=== PATIENT | female | born 1995 | race Caucasian/White ===

== ENCOUNTER 2019-09-06 14:27 | Outpatient (CLI) | payer OTHER ==
[2019-09-06 14:53] LABS: Glucose,Whole Blood 89 mg/dL (75-99)
[2019-09-06 15:43] VITALS: BP 133/82; PULSE 118; RESP 16; TEMP 97.3
[2019-09-06 16:09] LABS: Basophils % (A) 0 %; Eosinophils # (A) 0.1 k/uL (0-0.7); Eosinophils % (A) 2 %; HCT 27.9 % (34.0-46.0); HGB 9.5 gm/dL (11.4-16.0); Lymphocytes # (A) 1.3 k/uL (1.0-4.8); Lymphocytes % (A) 17 %; MCH 29.5 pg (25.0-35.0); MCHC 33.9 g/dL (31.0-37.0); Mean Platelet Volume 6.6; Monocytes # (A) 0.4 k/uL (0-1.0); Monocytes % (A) 5 %; Neutrophils # (A) 5.5 k/uL (1.3-7.7); Neutrophils % (A) 74 %; Platelet Count 328 k/uL (150-450); Poikilocytosis Slight; RBC 3.21 m/uL (3.80-5.40); RDW 13.2 % (11.5-15.5); WBC 7.5 k/uL (3.8-10.6)
[2019-09-06 16:18] LABS: ALT 16 U/L (9-52); AST 20 U/L (14-36); African American GFR (CKD) >90 (>60 ml/min/1.73 sqM); Blood Urea Nitrogen 6 mg/dL (7-17); LDH 332 U/L (313-618); Uric Acid 2.8 mg/dL (3.7-7.4)
[2019-09-06 16:20] LABS: Amorphous Sediment,Urine Rare /hpf; Appearance,Urine Cloudy (Clear); Bacteria,Urine Rare /hpf; Bilirubin,Urine Negative (Negative); Blood,Urine Negative (Negative); Color,Urine Yellow; Glucose,Urine (UA) Negative (Negative); Ketones,Urine Negative (Negative); Leukocyte Esterase,Urine Trace (Negative); Mucus,Urine Rare /hpf; Nitrite,Urine Negative (Negative); PH, Urine 6.5 (5.0-8.0); Protein,Urine Negative (Negative); RBC,Urine 1 /hpf (0-5); Specific Gravity,Urine 1.009 (1.001-1.035); Squamous Epithelial Cell,Urine 15 /hpf (0-4); Urobilinogen,Urine <2.0 mg/dL (<2.0); WBC,Urine 4 /hpf (0-5)
--- NOTE | 2019-09-06 18:45 | P.MSEPDOC ---
Presenting Problems - Arrival Data Date of Arrival on Unit: 09/06/19 Time of Arrival on Unit: 14:27 Mode of Transport: Ambulatory - Complaint OB-Reason for Admission/Chief Complaint: Headache, Pain Comment: pain up spine and headache Medical History - Information : 3 Para: 2 Term: 2 : 0 Abortions: Spontaneous or Elective: 0 Number of Living Children: 2 - Gestational Age Gestational Age by MARCUS (wks/days): 36 Weeks and 4 Days - History Complications: GDM Review of Systems - Review of Systems Constitutional: No problems Breast: No problems ENT: No problems Cardiovascular: No problems Respiratory: No problems Gastrointestinal: No problems Genitourinary: No problems Musculoskeletal: No problems Neurological: No problems Skin: No problems Vital Signs - Temperature Temperature: 97.3 F Temperature Source: Temporal Artery Scan - Pulse Right Sitting Pulse Rate: 118 Pulse Assessment Method: Automatic Cuff - Respirations Respiratory Rate: 16 Oxygen Delivery Method: Room Air O2 Sat by Pulse Oximetry: 99 - Blood Pressure Right Arm Blood Pressure: 133/82 Blood Pressure Mean: 99 Blood Pressure Source: Automatic Cuff Medical Screen Scoring (Pre) - Cervical Exam Dilation: Exam Deferred Effacement: Exam Deferred Membranes: Intact - Uterine Contractions Frequency: N/A Duration: N/A Intensity: N/A - Maternal Vital Signs Maternal Temperature: N/A Maternal Blood Pressure: N/A Signs of Preeclampsia: Headache = 1 Maternal Respirations: N/A - Maternal Trauma Maternal Trauma: N/A - Assessment - Baby A Baseline FHR: 145 Heart Rate - NICHD Category: Category I (Normal) = 0 NST: Reactive Position: N/A Station: N/A - Total Score - Baby A Total Score - Baby A: 1 - Total Score - Baby B Total Score - Baby B: 1 - Total Score - Baby C Total Score - Baby C: 1 - Level of Risk - Baby A Level of Risk - Baby A: Low (0-5) - Level of Risk - Baby B Level of Risk - Baby B: Low (0-5) - Level of Risk - Baby C Level of Risk - Baby C: Low (0-5) Physician Notification (Pre) - Physician Notified Physician Notified Date: 09/06/19 Physician Notified Time: 15:18 Physician/Practitioner Notifed:: Ab Panchal Order Received: Yes (PIH eval) Physician Notification (Post) - Physician Notified Physician Notified Date: 09/06/19 Physician Notified Time: 16:35 Physician/Practitioner Notified:: Dr. Berger Spoke With: Dr. Berger New Order Received: Yes - Notification Comment Comment: Notified of [facility] labwork and that pt continues to have reactive FHT. Orders received to discharge pt home. Disposition - Disposition OB Disposition: Discharge to home Transferred to:: home Discharge Date: 09/06/19 Discharge Time: 16:45 I agree with the RN Medical Screening Exam: Yes Risk & Benefit of care provided described in d/c instruction: Yes Diagnosis: OTHER SPECIFIED COMPLICATIONS OF LABOR AND DELIVERY
== END 2019-09-06 16:45 | disposition home or self-care (01) ==
LOC: FBPOP 14:27
PROVIDERS: ATTEND Obstetrics & Gynecology
DX: O75.89 Other specified complications of labor and delivery (principal); Z3A.36 36 weeks gestation of pregnancy
CPT/HCPCS: 59025; 84156; 82565; 83615; 84450; 84460; 84520; 84550; 85025; 81001; G0463; 82570; 99215

== ENCOUNTER 2019-09-23 05:44 | Inpatient (IN) | payer OTHER ==
--- NOTE | 2019-09-22 17:19 | P.HPOB ---
History of Present Illness H&P Date: 09/22/19 Chief Complaint: Requested induction of labor, gestational diabetes This patient is a pleasant 24-year-old 4 para 2 female estimated date of confinement 09/30/2019 estimated gestational age 39 weeks who presents to labor and delivery for induction of labor secondary to gestational diabetes in maternal discomfort. Patient's had diet-controlled diabetes with good control. She is a favorable cervix requesting induction at this time. Diabetes has been managed per maternal- medicine she's been followed with growth ultrasounds and nonstress tests. otherwise has been uncomplicated. Review of Systems Genitourinary: Reports Menstruation: Reports amenorrhea Past Medical History Additional Past Medical History / Comment(s): Gestational diabetes. History of Any Multi-Drug Resistant Organisms: None Reported Additional Past Surgical History / Comment(s): Dilation and curettage Past Anesthesia/Blood Transfusion Reactions: No Reported Reaction Past Psychological History: Anxiety, Depression Smoking Status: Never smoker Past Alcohol Use History: None Reported Past Drug Use History: None Reported Medications and Allergies Home Medications Medication Instructions Recorded Confirmed Type Pnv No.95/Ferrous Fum/Folic AC 1 tab PO DAILY 09/06/19 09/06/19 History [ Multivitamin Tablet] Allergies Allergy/AdvReac Type Severity Reaction Status Date / Time codeine Allergy Rash/Hives Verified 09/06/19 15:12 Exam - OBG Physical Exam Abdomen: bowel sounds normal, no diffuse tenderness, no bruit present, no guarding noted, no hepatomegaly, no splenomegaly, no mass Vulva: both: normal Vagina: normal moisture, no discharge Cervix: no lesion (Cervix is 2 cm and thick but soft.), no discharge Uterus: enlarged (Fundal height is 38 cm) Results blood work shows she is A positive, rubella immune, RPR is nonreactive, hepatitis B is negative, HIV is negative, Glucola was 135 patient declined a three-hour GTT and was referred to maternal- medicine. Group B strep was negative. cardiac echo showed a EIF and they recommended a nonemergent echo to evaluate the aortic valve secondary to family medical history. All sounds have shown normal growth. Assessment and Plan Assessment: This is a pleasant 24-year-old 4 para 2 female 39 weeks gestation who is admitted to labor and delivery for requested induction of labor and for gestational diabetes. Plan is induction of labor per protocol and anticipate vaginal delivery. (1) 39 weeks gestation of Status: Acute Code(s): Z3A.39 - 39 WEEKS GESTATION OF SNOMED Code(s): 27597734 (2) Gestational diabetes Status: Acute Code(s): O24.419 - GESTATIONAL DIABETES MELLITUS IN , UNSP CONTROL SNOMED Code(s): 39719384 (3) Elective induction of labor planned Status: Acute Code(s): [id number] - SNOMED Code(s): 534150050
[2019-09-23] MEDS ORDERED: TERBUTALINE 1 MG/ML VIAL SQ PRN (05:57)
[2019-09-23] MEDS ORDERED: LIDOCAINE 0.5% (PF) 5 MG/ML (50 ML SDV) SQ PRN (05:57)
[2019-09-23] MEDS ORDERED: METHYLERGONOVINE 0.2 MG/ML 1 ML AMP IM PRN (05:57)
[2019-09-23] MEDS ORDERED: OXYTOCIN 10 UNIT/ML 1 ML VIAL IM PRN (05:57)
[2019-09-23] MEDS ORDERED: OXYTOCIN 30 UNITS/500 ML NS 30 UNIT in SALINE 1 500ML.BAG IV SCH (05:57)
[2019-09-23] MEDS ORDERED: CARBOPROST TROMETHAMINE 250 MCG/ML 1 ML AMP IM PRN (05:57)
[2019-09-23 06:08] LABS: Glucose,Whole Blood 101 mg/dL (75-99)
[2019-09-23 06:19] LABS: Basophils # (A) 0.2 k/uL (0-0.2); Basophils % (A) 2 %; Eosinophils # (A) 0.2 k/uL (0-0.7); Eosinophils % (A) 2 %; HCT 29.9 % (34.0-46.0); HGB 9.8 gm/dL (11.4-16.0); Lymphocytes # (A) 1.2 k/uL (1.0-4.8); Lymphocytes % (A) 18 %; MCH 28.4 pg (25.0-35.0); MCHC 32.9 g/dL (31.0-37.0); MCV 86.4 fL (80.0-100.0); Mean Platelet Volume 6.8; Monocytes # (A) 0.3 k/uL (0-1.0); Monocytes % (A) 5 %; Neutrophils # (A) 4.7 k/uL (1.3-7.7); Neutrophils % (A) 71 %; Platelet Count 306 k/uL (150-450); Poikilocytosis Slight; RBC 3.46 m/uL (3.80-5.40); RDW 13.5 % (11.5-15.5); WBC 6.6 k/uL (3.8-10.6)
[2019-09-23 06:26] VITALS: BMI 30.1
[2019-09-23] MEDS: LACTATED RINGERS 1,000 ML IV SCH ×2 (06:26→11:02)
[2019-09-23] MEDS ORDERED: ROPIVACAINE 5MG/ML 20ML VIAL ONE (12:34)
[2019-09-23] MEDS ORDERED: SODIUM CHLORIDE 0.9% 100 ML BAG ONE (12:34)
[2019-09-23] MEDS ORDERED: fentaNYL (PF) 50 MCG/ML 5 ML AMP ONE (12:34)
--- NOTE | 2019-09-23 18:33 | P.PROBDLV ---
Vaginal Delivery Note - . Vaginal Delivery Note: Normal vaginal delivery viable female Apgars 9 and 9 delivery time is 1809 hrs. Please see dictated H&P for intimate details of this patient's admission. In brief summary this is a pleasant 24-year-old 4 para 2 female estimated gestational age 39-0/7 weeks who is admitted to labor and delivery for induction of labor secondary to maternal discomfort and gestational diabetes. Patient is admitted and is to centimeters dilated and uneffaced. She has artificial rupture membranes for clear fluid. Labor is induced with Pitocin per protocol. Labor progresses and she gets an epidural for pain control approximately 4 cm. Patient thereafter goes more rapidly and pushes the head to the perineum. Posterior perineum is supported and we have controlled delivery of infant's head over the intact perineum. Mouth and nares are bulb suctioned. There is a very loose nuchal cord. With gentle downward traction we then have deliver the anterior posterior shoulder and rest this infant's body. This is a vigorous viable female Apgars 9 and 9 delivery time is 1809 hrs. After delivery of the infant the umbilical cord is allowed to quit pulsating is then doubly clamped and cut. It appears to be trivascular. Placenta spontaneously deliver ed intact. Inspection of the perineum shows separation of the labia on the right upper side. There is also a superficial laceration of the right perineum and posteriorly most of these are very superficial however I did do my best to reapproximate the right upper labia and put it back as previous. This was accomplished with lidocaine and a 4-0 Vicryl. Excellent reapproximation is noted. Estimated blood loss is 200 mL. There are no complications. Infant and mother are stable.
[2019-09-23] MEDS ORDERED: SIMETHICONE 80 MG CHEWABLE PO PRN (19:05)
[2019-09-23] MEDS ORDERED: ZOLPIDEM 5 MG TAB PO PRN (19:05)
[2019-09-23] MEDS ORDERED: OXYTOCIN 20 UNITS/1000 ML NS 1,000 ML IV SCH (19:05)
[2019-09-23] MEDS ORDERED: ACETAMINOPHEN TAB 325 MG TAB PO PRN (19:05)
[2019-09-23] MEDS ORDERED: BENZOCAINE/MENTHOL SPRAY 1 GM/SPRAY AEROSOL TOPICAL PRN (19:05)
[2019-09-23] MEDS ORDERED: LANOLIN CREAM 5 GM TUBE TOPICAL PRN (19:05)
[2019-09-23] MEDS ORDERED: diphenhydrAMINE 50 MG/ML 1 ML VIAL IVP PRN (19:05)
[2019-09-23] MEDS ORDERED: WITCH HAZEL 1 EACH MED..PAD TOPICAL PRN (19:05)
[2019-09-23] MEDS ORDERED: BISACODYL 10 MG SUPP RECTAL PRN (19:05)
[2019-09-23] MEDS ORDERED: HYDROCORTISONE 2.5% RECTAL CREAM 30 GM TUBE RECTAL PRN (19:05)
[2019-09-23] MEDS ORDERED: diphenhydrAMINE 25 MG CAP PO PRN (19:05)
[2019-09-23] MEDS: IBUPROFEN 600 MG TAB PO PRN (19:29)
[2019-09-23] MEDS: SENNOSIDES-DOCUSATE SODIUM 1 EACH TAB PO SCH ×2 (19:30→20:50)
[2019-09-24] MEDS: IBUPROFEN 600 MG TAB PO PRN ×2 (05:17→11:00)
--- NOTE | 2019-09-24 07:38 | P.PNOBGVD ---
Subjective - Subjective Patient reports: Reports appetite normal, Reports voiding normally, Reports pain well controlled, Reports ambulating normally : doing well Objective - Latest Vital Signs Latest vital signs: Vital Signs Temp Pulse Resp BP Pulse Ox 09/24/19 04:00 98 F 80 15 120/70 98 09/24/19 00:00 98 F 82 15 131/72 09/23/19 20:30 92 16 135/95 09/23/19 20:03 88 16 128/71 09/23/19 19:32 100 17 137/75 09/23/19 19:17 80 17 132/71 09/23/19 19:01 80 16 136/76 09/23/19 18:46 96 16 136/72 09/23/19 18:31 98.4 F 98 17 137/82 Intake and Output 09/23/19 09/24/19 09/24/19 22:59 06:59 14:59 Output Total 200 Balance -200 Output: Urine 200 Straight 200 Other: # Voids 1 - Exam Lungs: bilateral: normal Chest: Normal S1, Normal S2 Extremities: Present: normal Abdomen: Present: normal appearance, soft Uterus: Present: normal, firm Assessment and Plan Assessment: day #1. Patient is resting without new complaints and wishes to go home later today. Vital signs are stable she is afebrile. Uterus is firm nontender and she is having normal lochia. My impression is a normal course. Plan is to continue routine care discharge home later today (1) 39 weeks gestation of Current Visit: No Status: Acute Code(s): Z3A.39 - 39 WEEKS GESTATION OF SNOMED Code(s): 56714273 (2) Gestational diabetes Current Visit: No Status: Acute Code(s): O24.419 - GESTATIONAL DIABETES MELLITUS IN , UNSP CONTROL SNOMED Code(s): 91475682 (3) Elective induction of labor planned Current Visit: No Status: Acute Code(s): CBJ4655 - SNOMED Code(s): 061581242
--- NOTE | 2019-09-24 07:41 | P.DS ---
Providers Date of admission: 09/23/19 05:44 Expected date of discharge: 09/24/19 Attending physician: Fish Berger Primary care physician: Stated None - Discharge Diagnosis(es) (1) 39 weeks gestation of Current Visit: No Status: Acute (2) Gestational diabetes Current Visit: No Status: Acute (3) Elective induction of labor planned Current Visit: No Status: Acute Hospital Course: Please see dictated H&P intimate details of this patient's admission. Brief summary this is a pleasant 24-year-old 4 para 2 female 39-0/7 weeks gestation who is admitted to labor and delivery for elective induction of labor and for gestational diabetes. Patient is admitted she is uncomplicated induction of labor was on have a vaginal delivery viable female . Please see dictated delivery note. day #1 patient without complaints she wishes to go home. Vital signs are stable she is afebrile. Uterus is firm nontender she's having normal lochia felt be stable for discharge home follow up with me in 6 weeks Procedures: Induction of labor and normal vaginal delivery Patient Condition at Discharge: Good Plan - Discharge Summary New Discharge Prescriptions: New RX: Ibuprofen [Motrin] 600 mg PO Q6HR PRN #40 tab PRN Reason: Mild Pain Or Fever >= 100.5 Discharge Medication List RX: Ibuprofen [Motrin] 600 mg PO Q6HR PRN #40 tab 09/24/19 [Rx] Follow up Appointment(s)/Referral(s): Fish Berger MD [STAFF PHYSICIAN] - 6 Weeks Patient Instructions/Handouts: Vaginal Delivery (DC) Activity/Diet/Wound Care/Special Instructions: No intercourse or anything per vagina for 6 weeks. Please call if any fever, chills, excessive vaginal bleeding, and/or abdominal pain. Discharge Disposition: HOME SELF-CARE
[2019-09-24] MEDS: SENNOSIDES-DOCUSATE SODIUM 1 EACH TAB PO SCH ×2 (07:55→13:30)
[2019-09-24 16:10] VITALS: BP 137/82; PULSE 74; RESP 17; TEMP 98.3
== END 2019-09-24 19:05 | disposition home or self-care (01) | DRG 807 ==
LOC: 4FBP 05:44
PROVIDERS: ADMIT Obstetrics & Gynecology; ATTEND Obstetrics & Gynecology
PROC: 10E0XZZ Delivery of Products of Conception, External Approach (ICD-10-PCS; principal; 2019-09-23)
DX: O99.344 Other mental disorders complicating childbirth (principal); Z37.0 Single live birth; O24.429 Gestational diabetes mellitus in childbirth, unspecified control; F41.9 Anxiety disorder, unspecified; F32.9 Major depressive disorder, single episode, unspecified; Z3A.39 39 weeks gestation of pregnancy; Z83.3 Family history of diabetes mellitus
CPT/HCPCS: 85025; 86850; 86900; 86901; 88307

== ENCOUNTER 2019-12-30 06:26 | Day surgery (SDC) | payer BC, OTHER ==
[2019-12-28 12:28] VITALS: BMI 25.6
--- NOTE | 2019-12-29 13:06 | P.HPOB ---
History of Present Illness H&P Date: 12/29/19 Chief Complaint: Requesting permanent sterilization This patient is a pleasant 24 yr who presented to me for her visit and is requesting permanent sterilization. I discussed various options for control, including hormonal, IUD, and male sterilization but this is the method she desires. 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 Past Medical History Past Medical History: No Reported History Additional Past Medical History / Comment(s): hx Gestational diabetes. History of Any Multi-Drug Resistant Organisms: None Reported Additional Past Surgical History / Comment(s): Dilation and curettage Past Anesthesia/Blood Transfusion Reactions: No Reported Reaction Past Psychological History: No Psychological Hx Reported Smoking Status: Never smoker Past Alcohol Use History: None Reported Past Drug Use History: None Reported - Past Family History Father History Unknown: Yes Family Medical History: No Reported History Medications and Allergies Home Medications Medication Instructions Recorded Confirmed Type No Known Home Medications 12/28/19 12/28/19 History Allergies Allergy/AdvReac Type Severity Reaction Status Date / Time codeine Allergy Rash/Hives Verified 12/28/19 12:24 Exam - OBG Physical Exam Abdomen: bowel sounds normal, no diffuse tenderness, no bruit present, no guarding noted, no hepatomegaly, no splenomegaly, no mass Vulva: both: normal Vagina: normal moisture, no discharge Cervix: no lesion, no discharge Uterus: normal size, normal contour Adnexa: both: normal Assessment and Plan Assessment: I have had a long discussion with Teena about control options and she is requesting laparoscopic bilateral fallopian tube cauterization. She understands that this procedure is considered permanent, however there is a failure rate of ~03/1000 procedures done. She also understands that if she does become she has ~50% chance of a tubal/ectopic requiring further treatment/surgery. I discussed the risks of this surgery including: infection, bleeding, possible injury to bowel/bladder/vessels and or other organs. She and I discussed that the procedure is elective and alternative exist. All of her questions were answered and a written consent obtained. (1) Family planning Status: Acute Code(s): Z30.09 - ENCOUNTER FOR OT GENERAL CNSL AND ADVICE ON CONTRACEPTION SNOMED Code(s): 767452551
[~2019-12-30 06:26] MED LIST: DEXAMETHASONE SOD PHOSPHATE 10 MG/ML 1 ML VIAL IV ONE; HYDROmorphone 0.5 MG/0.5 ML SYRINGE IVP PRN; KETOROLAC 30 MG/ML 1 ML VIAL IVP SCH; LACTATED RINGERS 1,000 ML IV SCH; LIDOCAINE 1% 20 ML VIAL (10MG/ML) FOR IV START INTRADERMA PRN; ONDANSETRON 4 MG/2 ML VIAL IVP PRN; Pre Op ABX Message 1 EACH MISC MISCELLANE ONE; SCOPOLAMINE 1.5MG/72HR PATCH TRANSDERM ONE
[2019-12-30] MEDS ORDERED: fentaNYL (PF) 50 MCG/ML 2 ML AMP ONE (07:19)
[2019-12-30] MEDS ORDERED: NEOSTIGMINE 1 MG/ML 10 ML VIAL ONE (07:19)
[2019-12-30] MEDS ORDERED: KETOROLAC 30 MG/ML 1 ML VIAL ONE (07:19)
[2019-12-30] MEDS ORDERED: SUCCINYLCHOLINE CHLORIDE 100 MG/5 ML SYR IV ONE (07:19)
[2019-12-30] MEDS ORDERED: MIDAZOLAM 2 MG/2 ML VIAL ONE (07:19)
[2019-12-30] MEDS ORDERED: GLYCOPYRROLATE 0.2 MG/ML 2 ML VIAL ONE (07:19)
[2019-12-30] MEDS ORDERED: PROPOFOL 10 MG/ML 20 ML VIAL IV ONE (07:19)
[2019-12-30] MEDS ORDERED: ROCURONIUM BROMIDE 10 MG/ML 5 ML VIAL IV ONE (07:19)
[2019-12-30] MEDS ORDERED: LIDOCAINE 1% INJ 10MG/ML (20 ML MDV) ONE (07:19)
[2019-12-30] MEDS ORDERED: BUPIVACAINE (PF) 0.5% 30 ML VIAL SQ ONE ×2 (07:41→07:57)
--- NOTE | 2019-12-30 08:15 | P.OP ---
Date of Procedure: 12/30/19 Preoperative Diagnosis: Multiparity parity desires permanent sterilization Postoperative Diagnosis: Same Procedure(s) Performed: Laparoscopic bilateral fallopian tube cauterization Anesthesia: [place] Surgeon: Fish Berger Estimated Blood Loss (ml): 10 Urine output (ml): 10 Pathology: none sent Condition: stable Disposition: PACU Indications for Procedure: Please see dictated H&P for intimate details of this patient's admission. This patient is a pleasant 24-year-old 4 para 3 female status post spontaneous vaginal delivery of the third viable is requesting permanent sterilization. Patient understands this surgery and risks including risks of infection, bleeding, possible injury bowel, bladder, vessels, and/or other organs. She also understands this procedure is considered permanent although there is a failure rate of approximately 5 per thousand procedures done and she did become a 50% chance of an ectopic or tubal . All the patient's questions are answered written consent is obtained. Operative Findings: This patient normal appearing pelvis and upper abdomen. Description of Procedure: This patient is taken to the operating room where she is laid in the supine position. She subsequently undergoes general endotracheal anesthesia without incident. An adequate level of anesthesia she's placed in dorsal lithotomy position. She has a vaginal perineal prep and drape. First good on below placed a speculum vagina visualizing the cervix. An Allis clamp was placed anterior lip of the cervix and a large acorn cannula is gently placed into the cervix and attached to the Allis clamp. The bladder is then drained with a red Dailey catheter and this is left in place. I then changed gloves and go above. I make a 10 mm infraumbilical incision. Using a 10 mm bladed lists optical trocar I placed the trocar into the peritoneum. Peritoneal placement is confirmed and a pneumoperitoneum was created to 12 mm of carbon dioxide gas. With this done patient placed in slight Trendelenburg position. I then make a 5 mm incision approximately 2 fingerbreadths above the symphysis pubis. Through this a 5 mm bladed lists trochars placed under direct visualization. Using a blunt probe I then visualize uterus tubes and ovaries all appears normal. Using bipolar cautery then grasped the left fallopian tube approximately 4 cm from the cornual insertion and a 2 cm segment of the tube was completely cauterized as demarcated by the volt meter. Then turned my attention to the right fallopian tube and using a similar technique we have similar results. With this completed I then inspected the upper abdomen all appears normal. Appendix appears normal. The lower trochars then removed and good hemostasis is noted. Pneumoperitoneum was reduced and the upper trochars removed. Incisions are closed with a 4-0 Vicryl. Skin is and closed using Steri-Strips. I infiltrate both incisions with half percent Marcaine. Sterile dressing applied. I go below remove the acorn cannula an Allis clamp. All counts correct 3. There are no complications. Patient's taken recovery room satisfactory condition.
[2019-12-30 08:23] VITALS: TEMP 97
[2019-12-30] MEDS ORDERED: LACTATED RINGERS 1,000 ML IV ONE (08:46)
[2019-12-30 09:13] VITALS: BP 129/84; PULSE 60; RESP 17
== END 2019-12-30 09:57 | disposition home or self-care (01) ==
LOC: OR 06:26
PROVIDERS: ATTEND Obstetrics & Gynecology
DX: Z30.2 Encounter for sterilization (principal); Z88.5 Allergy status to narcotic agent; Z86.32 Personal history of gestational diabetes; Z64.1 Problems related to multiparity
CPT/HCPCS: 58670; 81025; J2250; J1100; J2710; J2405; J2001; J3010; J1885; J0330; J2704